=== PATIENT | female | born 1975 | race Caucasian/White ===

== ENCOUNTER 2017-03-17 03:42 | Emergency (ER) | payer OTHER ==
[~2017-03-17] VITALS: Ht 170.2 cm; Wt 113.5 kg
[~2017-03-17 03:42] MED LIST: NOHOMEMEDS
[2017-03-17] MEDS ORDERED: PREDNISONE10 MG PO (04:24)
[2017-03-17] MEDS ORDERED: FLEXERIL10 MG PO (04:24)
[2017-03-17 05:03] VITALS: BP 132/87
== END 2017-03-17 05:03 | disposition home or self-care (01) ==
LOC: EME 03:42
DX: M54.32 Sciatica, left side (principal); Z88.6 Allergy status to analgesic agent
CPT/HCPCS: 99281; 99284; J1100; J1885

== ENCOUNTER 2017-07-13 04:43 | Emergency (ER) | payer OTHER ==
[~2017-07-13] VITALS: Ht 170.2 cm; Wt 111.1 kg
[~2017-07-13 04:43] MED LIST changes: +FLEXERIL10 MG PO; +PREDNISONE10 MG PO
[2017-07-13 05:11] LABS: ADD MIUA? NO; BILIRUBIN NEGATIVE; BLOOD NEGATIVE; COLOR YELLOW ((YELLOW)); GLUCOSE (STRIP) NEGATIVE; KETONES NEGATIVE; LEUKOCYTES NEGATIVE; NITRITE NEGATIVE; PROTEIN (STRIP) NEGATIVE; SPECIFIC GRAVITY 1.016 (1.000-1.030); UCUL ADDED? NO; UROBILINOGEN 0.2 MG/DL (0.2-1.0)
[2017-07-13] MEDS ORDERED: FLAGYL500 MG PO (05:40)
[2017-07-13] MEDS ORDERED: DIFLUCAN150 MG PO (05:50)
[2017-07-13 05:54] VITALS: BP 122/76
[2017-07-16] MEDS ORDERED: FLONASE16 G1 BOTH NARES (09:05)
[2017-07-16] MEDS ORDERED: ROBITUSSIN NIG237 ML PO (09:05)
[2017-07-16] MEDS ORDERED: AUGMENTIN875 MG PO (09:05)
[2017-07-16] MEDS ORDERED: TESSALON200 MG PO (09:05)
[2017-07-16] MEDS ORDERED: GUAIFENESIN600 M1 PO (09:05)
== END 2017-07-13 05:55 | disposition home or self-care (01) ==
LOC: EME 04:43
PROVIDERS: Physician Assistant
DX: R30.0 Dysuria (principal)
CPT/HCPCS: 81003; 99281; 99285

== ENCOUNTER → 2017-07-16 | Emergency (ER) | payer OTHER ==
[~2017-07-16] VITALS: Ht 170.2 cm; Wt 109.1 kg
[~2017-07-16] MED LIST changes: +AUGMENTIN875 MG PO; +DIFLUCAN150 MG PO; +FLAGYL500 MG PO; +FLONASE16 G1 BOTH NARES; +GUAIFENESIN600 M1 PO; +ROBITUSSIN NIG237 ML PO; +TESSALON200 MG PO
[2017-07-16 09:18] VITALS: BP 138/71
== END | disposition home or self-care (01) ==
LOC: EME 07:36
DX: J32.9 Chronic sinusitis, unspecified (principal); J06.9 Acute upper respiratory infection, unspecified; R53.83 Other fatigue; Z88.5 Allergy status to narcotic agent; Z88.6 Allergy status to analgesic agent
CPT/HCPCS: 71020; 99281; 99284